=== PATIENT | female | born 2005 | race Two or more races ===

== ENCOUNTER 2024-10-30 14:14 | Emergency (ER) | payer MEDICAID ==
[~2024-10-30] VITALS: Ht 160 cm; Wt 75.0 kg
[~2024-10-30 14:14] MED LIST: [UNRECOGNIZED DRUG - OTHER]
[2024-10-30 15:14] LABS: COVID AG,FIA SOURCE NASAL SWAB
[2024-10-30 15:14] LABS: BASOPHILS % (AUTO) 0.1 % (0.0-2.0); EOSINOPHILS % (AUTO) 0.3 % (1.0-6.0); HEMATOCRIT 43.9 % (36-46); HEMOGLOBIN 14.5 g/dL (12.0-16.0); LYMPHOCYTES # (AUTO) 0.3 K/uL (1.0-4.8); LYMPHOCYTES % (AUTO) 2.6 % (22.0-44.0); MEAN CORPUSCULAR HEMOGLOBIN 30.2 pg (26.0-34.0); MEAN CORPUSCULAR VOLUME 92 fL (80-100); MONOCYTES # (AUTO) 0.4 K/uL (0.1-1.0); MONOCYTES % (AUTO) 2.8 % (2.0-9.0); NEUTROPHILS # (AUTO) 11.9 K/uL (1.8-7.7); PLATELET COUNT (AUTO) 350 K/uL (150-450); RED BLOOD CELL COUNT(AUTO) 4.79 MIL/uL (4.00-5.20); RED CELL DISTRIBUTION WIDTH 12.8 % (11.5-14.5); WHITE BLOOD COUNT (AUTO) 12.6 K/uL (4.5-11.0)
[2024-10-30 15:15] LABS: NEUTROPHILS % (AUTO) 94.2 % (40.0-70.0)
[2024-10-30 15:32] LABS: ANION GAP 10 mmol/L (8-16); CALCIUM, TOTAL 8.7 mg/dL (8.8-10.5); CARBON DIOXIDE 27 mmol/L (22-29); CHLORIDE 102 mmol/L (98-107); CREATININE 0.77 mg/dL (0.60-1.30); GLOMERULAR FILTR. RATE CALC > 60 mL/min (>60); GLUCOSE,RANDOM 117 mg/dL (70-110); LIPASE 21 U/L (16-77); SODIUM SERUM 139 mmol/L (136-145); UREA NITROGEN, BLOOD 19 mg/dL (7-18)
[2024-10-30 15:39] LABS: INFLUENZA TYPE A NEGATIVE FOR TYPE A (NEGATIVE); INFLUENZA TYPE B NEGATIVE FOR TYPE B (NEGATIVE); SARS-COV2 (COVID) ANTIGEN,FIA Negative (Negative)
[2024-10-30 15:59] LABS: HCG,QUANTITATIVE < 1 mIU/mL (0-6)
[2024-10-30] MEDS ORDERED: SODIUM CHLORIDE 0.9% 100 ML ONE (16:13)
[2024-10-30] MEDS ORDERED: IOHEXOL 350 MG/ML 100 ML VIAL ONE (16:13)
[2024-10-30] MEDS: ONDANSETRON HCL 4 MG/2 ML VIAL IVP ONE (16:20)
[2024-10-30] MEDS: MAG HYDROX/ALUMINUM HYD/SIMETH 30 ML SUSPENSION UDCUP PO ONE (16:20)
[2024-10-30] MEDS: FAMOTIDINE 20 MG/2 ML VIAL IVP ONE (16:20)
[2024-10-30 16:21] LABS: ALANINE AMINOTRANSFERASE 18 U/L (12-78); ALBUMIN 3.6 g/dL (3.4-5.0); ALKALINE PHOSPHATASE 97 U/L (46-116); ASPARTATE AMINOTRANSFERASE 15 U/L (15-37); BILIRUBIN,TOTAL 0.6 mg/dL (0.1-1.0); TOTAL PROTEIN, SERUM 7.5 g/dL (6.4-8.2)
[2024-10-30] MEDS: SODIUM CHLORIDE 0.9% 1,000 ML IV ONE (16:21)
[2024-10-30] MEDS: KETOROLAC TROMETHAMINE 30 MG/ML VIAL IVP ONE (16:21)
[2024-10-30 16:49] LABS: APPEARANCE,URINE CLEAR (CLEAR); BILIRUBIN,URINE NEGATIVE (NEGATIVE); COLOR,URINE LIGHT YELLOW (YELLOW); GLUCOSE, URINE (UA) NEGATIVE (NEGATIVE); LEUKOCYTE ESTERASE ,URINE NEGATIVE (NEGATIVE); NITRATE,URINE NEGATIVE (NEGATIVE); OCCULT BLOOD,URINE LARGE (NEGATIVE); PROTEIN,URINE TRACE mg/dL (NEGATIVE); SPECIFIC GRAVITIY, URINE 1.034 (1.003-1.030); UROBILINOGEN,URINE <=1.0 mg/dL (<=1.0)
[2024-10-30 16:57] LABS: BACTERIA,URINE None Seen /HPF (None Seen); SQUAMOUS EPITHELIAL CELL,UR Rare /LPF (None Seen); WBC,URINE 0-2 /HPF (0-5)
[2024-10-30 18:58] VITALS: BP 115/69; PULSE 98; RESP 17; TEMP 98.9; O2SAT 99
[2024-10-30] MEDS ORDERED: ONDA-104 PO (19:18)
== END 2024-10-30 19:32 | disposition home or self-care (01) ==
LOC: EMS 14:14
DX: R10.33 Periumbilical pain (principal); R11.2 Nausea with vomiting, unspecified; Z20.822 Contact with and (suspected) exposure to COVID-19
CPT/HCPCS: 99285; 74177; 96374; 96375; 96361; 87426; 80048; 80076; 81001; 83690; 84702; 85025; 87804; 36415; J1885; Q9967; J3490; J2405; J7030; J7050